=== PATIENT | female | born 1980 | race African-American/Black ===

== ENCOUNTER 2019-08-30 09:23 | Outpatient (CLI) | payer BC ==
[~2019-08-30 09:23] MED LIST: MOBIC7.5 M1 PO
== END 2019-08-30 10:00 | disposition home or self-care (01) ==
LOC: NUCLEAR 09:23
DX: M46.1 Sacroiliitis, not elsewhere classified (principal); M94.0 Chondrocostal junction syndrome [Tietze]
CPT/HCPCS: 78315; A9503